=== PATIENT | female | born 1960 | race Two or more races ===

== ENCOUNTER 2023-12-19 17:40 | Outpatient (REF) | payer OTHER, SELFPAY ==
--- NOTE | ~2023-12-19 | MR_ITS ---
EXAMINATION: MRI OF THE BRAIN WITHOUT CONTRAST CLINICAL INFORMATION: Mild cognitive impairment. COMPARISON: There are no prior studies available for comparison. TECHNIQUE: MRI of the brain was obtained using routine sequences without contrast. FINDINGS: No diffusion abnormalities are identified to suggest an acute or subacute infarct. No mass effect or midline shift is seen. There is mild commensurate prominence of the ventricles and sulci. There are scattered small foci of hyperintense T2 and FLAIR signal in the periventricular and subcortical white matter, which are most consistent with chronic microvascular ischemic changes. There appears to be a 2.5 mm cystic area along the right aspect of the anterior lobe of the pituitary gland which may be consistent with a small cystic adenoma. There is no mass effect on the adjacent structures. No extra-axial fluid collections are seen. The brainstem and cerebellum are normal. No pathologic magnetic susceptibility artifact is identified on the gradient refocused acquisition. The craniovertebral junction, marrow signal, and midline structures are normal. The major intracranial flow-voids at the level of the [place] are preserved. The dural venous sinus flow-voids are maintained. The mastoid air cells are well-aerated. There is mucoperiosteal thickening in the bilateral maxillary and anterior ethmoid sinuses. MR/MR head/brain wo con IMPRESSION: 1. There are no acute bleeds or territorial infarcts. No masses are demonstrated. 2. There are chronic microvascular ischemic changes and there is diffuse volume loss. 3. There is a small area of fluid signal in the right aspect of the anterior lobe of the pituitary gland, which may be consistent with a cystic microadenoma. Correlate with hormonal profile.
== END 2023-12-19 17:41 | disposition home or self-care (01) ==
LOC: HO.MRI 17:40
PROVIDERS: Visit Provider Psychiatry & Neurology Neurology
DX: G31.84 Mild cognitive impairment of uncertain or unknown etiology (principal)
CPT/HCPCS: 70551